=== PATIENT | male | born 1950 | race Caucasian/White ===

== ENCOUNTER 2025-02-19 00:07 | Day surgery (SDC) | payer MEDICARE, SELFPAY ==
[2025-02-10 12:43] VITALS: BMI 21.2
--- OUTSIDE RECORDS SUMMARY | 2025-02-19 00:11 | XMS_ITS | Clinical Summary ---
Author Organization [facility] Address [address] [address] [place] [address] Phone Care Team Providers Care Ladle Liner Name Role Phone Robert Rodriguez MD Unavailable [phone] Ajith Yoder MD Primary Care Provider [phone] Gregoria Goodrich APRN, SPINNER TENDER Unavailable Georges Luque MD Unavailable Lion Mishra MD Unavailable Allergies No known active allergies Medications Multiple Vitamin (MULTI-VITAMIN PO) Take by mouth daily. Active Continuous Glucose Sensor (FreeStyle Josemanuel 14 Day Sensor) MiscIndications:IGT (impaired glucose tolerance) 1 Device by Does not apply route every 14 days. 6 Each 1 4 Active lovastatin (MEVACOR) 20 MG TabletIndications:M ixed hyperlipidemia Take 1 Tablet by mouth daily. 90 Tablet 3 5 Active Active Problems Problem Noted Date Diagnosed Date Seasonal allergic rhinitis due to pollen 025 IGT (impaired glucose tolerance) 2018 Mixed hyperlipidemia 08/15/2015 Resolved Problems Problem Noted Date Diagnosed Date Resolved Date Conductive hearing loss, external ear 11/08/2016 Overview (01/20/2015): Improved with cleaning Impacted cerumen 11/08/2016 Encounters Date Type Department Care Team Description 11/25/2024 10:20 AM CDT Lab [facility] [place] [facility] [place] [id number] Mixed hyperlipidemia; IGT (impaired glucose tolerance); Abnormal PSA Discharge Disposition: Discharged to home or Selfcare 11/25/2024 8:30 AM CDT Office Visit [facility] [place] [facility] [place] [address] Ajith Yoder MD IGT (impaired glucose tolerance) (Primary Dx); Mixed hyperlipidemia; Seasonal allergic rhinitis due to pollen; Abnormal PSA Discharge Disposition: Discharged to home or Selfcare 11/25/2024 Results Follow-Up [facility] [place] [address] [place] [address] Ajith Yoder MD VITAMIN D, 25 HYDROXY TOTAL 11/23/2024 Travel from Last 3 Months Immunizations Immunization Administration Dates Next Due COVID-19, MRNA, LNP-S, BIVAL ENT , MODERNA, 50 MCG/0.5 ML (12+) 12/17/2022,06/25/2022 COVID-19, Mrna, Lnp-s, Pf, 50 mcg/0.5 mL 023 Covid-19, Mrna, Lnp-s, PF, 1 00 mcg/0.5 mL Dose (Moderna) 07/04/2020,06/06/2020 Influenza Vaccine greater than 3 yrs 02/22/2020, 05/06/2013 Influenza Vaccine, Quadrivalent, PF 02/06/2019,0 07/02/2018 Influenza, High-dose, Quadrivalent 02/08/2023 Influenza, Quadrivalent, Adjuvanted 02/01/2022 Influenza, high-dose, trivalent, PF 03/01/2024 Pneumococcal Vaccine - 13 Valent 11/08/2017 Pneumococcal Vaccine Adult - 23 Valent 9 TD VACCINE 06/08/2019 TDAP Vaccine 11/12/2007 Zoster Vaccine Recombinant 03/23/2020,12/04/2019 Zoster Vaccine, live 02/06/2012 Family History Medical History Relation Name Comments No Known Problems Brother Cancer Father CML Congestive Heart Failure Father Heart Disease Father Diabetes Maternal Grandfather Macular Degeneration Mother Relation Name Status Comments Brother Alive Father Maternal Grandfather Mother Alive Social History Tobacco Use Types Packs/Day Years Used Date Smoking Tobacco: Former Cigarettes 0.1 1 Smokeless Tobacco: Never Tobacco Cessation:Counseling Given: Not Answered Alcohol Use Standard Drinks/Week Comments Not Currently 0 (1 standard drink = 0.6 oz pur e alcohol) [facility] Utilities Answer Date Recorded In the past 12 months has e [employer], gas, oil, or water [employer] threatened to shut off services in your home? No 08/13/2024 Social Connection and Isolation Panel Answer Date Recorded In a typical week, how many times do you talk on the phone with family, friends, or neighbors? Three times a week 08/13/2024 How often do you get togethe r with friends or relatives? Three times a week 08/13/2024 How often do you attend chur ch or mandaen services? More than 4 times per year 08/13/2024 Do you belong to any clubs o r organizations such as congregation groups, unions, fraternal or athletic groups, or school groups? Yes 08/13/2024 How often do you attend meet ings of the clubs or organizations you belong to? More than 4 times per year 08/13/2024 Are you , , di vorced, , never , or living with a partner? Never 08/13/2024 AUDIT-C Answer Date Recorded Q1: How often do you have a drink containing alc ohol? Monthly or less 08/13/2024 Q2: How many drinks containi ng alcohol do you have on a typical day when you are drinking? 1 or 2 08/13/2024 Q3: How often do you have si x or more drinks on one occasion? Never 08/13/2024 Overall Financial Resource Strain (CARDIA) Answe r Date Recorded How hard is it for you to pa y for the very basics like food, housing, medical care, and heating? Not hard at all 08/13/2024 PHQ-2 Answer Date Recorded Total Score - Questions 1-9 0 08/04 [facility] [place] [employer] ional Health - Occupational Stress Questionnaire Answer Date Recorded Do you feel stress - tense, restless, nervous, or anxious, or unable to sleep at night because your mind is troubled all the time - these days? Not at all 08/13/2024 Exercise Vital Sign Answer Date Recorde d On average, how many days pe r week do you engage in moderate to strenuous exercise (like a brisk walk)? 3 days 08/13/2024 On average, how many minutes do you engage in exercise at this level? 30 min 08/13/2024 Hunger Vital Sign Answer Date Recorded Within the past 12 months, y ou worried that your food would run out before you got the money to buy more. Never true 08/14/19 25 Within the past 12 months, t he food you bought just didn't last and you didn't have money to get more. Never true 08/13/2024 PRAPARE - Transportation Answer Date Re corded In the past 12 months, has l ack of transportation kept you from medical appointments or from getting medications? No 08/04 In the past 12 months, has l ack of transportation kept you from meetings, work, or from getting things needed for daily living? No 08/13/2024 Housing Stability Vital Sign Answer Maury e Recorded In the last 12 months, was t here a time when you were not able to pay the mortgage or rent on time? No 08/13/2024 Number of Times Moved in the Last Year Not on fi le 08/13/2024 At any time in the [facility] were you homeless or living in a nursing home (including now)? No 08/13/2024 Housing Stability Vital Sign Answer Maury e Recorded In the last 12 months, was t here a time when you were not able to pay the mortgage or rent on time? No 11/23/2024 In the past 12 months, how m any times have you moved where you were living? 0 11/23/2024 At any time in the past 12 m [facility], were you homeless or living in a nursing home (including now)? No 11/23/2024 Education Answer Date Recorded What is the highest level of school you have completed or the highest degree you have received? 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 Sexual Orientation Not on file Last Filed Vital Signs Vital Sign Reading Time Taken Comments Blood Pressure 128/68 11/25/2024 8:23 AM CDT Pulse 73 11/25/2024 8:23 AM CDT Temperature 35.9 C (96.6 F) 11/25/2024 8:23 AM CDT Respiratory Rate 20 11/25/2024 8:23 AM CDT Oxygen Saturation 99% 11/25/2024 8:23 AM CDT Inhaled Oxygen Concentration - - Weight 69.9 kg (154 lb 1.6 oz) 11/25/2024 8:23 A M CDT Height 182.9 cm (6') 11/25/2024 8:23 AM CDT Body Mass Index 20.9 11/25/2024 8:23 AM CDT Plan of Treatment Upcoming Encounters Date Type Department Care Team (Late st Contact Info) Description 11/25/2025 9:00 AM CDT Office Visit [facility] [place] [address] [place] [phone] Ajith Yoder MD [address] [place], [place] [phone] Health Maintenance Due Date Last Done Comments Immunochemical Fecal Occult Blood 11/09/1996 Medicare Initial AWV [id number] 11/03/2017 Cologuard 12/06/2022 12/07/2019 Colorectal Cancer Screening 12/06/2022 Influenza Immunization (#1) 01/04/202502/04, 02/08/2023, 02/01/2022, Additional history exists SARS-COV-2 Immunization ( season) 2025 02/09/2024, 03/24/2023, 12/17/2022, Additional history exists Respiratory Syncytial Virus (RSV) Immunization (Adult) (1 - 1-dose 75+ series) 11/09/2026 Td Immunization Every 10 Years (Adults With 1 Tdap) 06/08/2029 06/08/2019, 11/12/2007 Colonoscopy 08/31/2032 08/31/2022 AAA Screening Ultrasound Completed 01/15/2018 Pneumococcal Immunization (50+ years) Completed 2018, 11/08/2017 Pneumococcal Immunization Combined Discontinued 2018, 11/08/2017 Zoster Immunization Completed 03/23/2020, 12/04/2019, 02/06/2012 Hepatitis C Virus (HCV) Screening Completed 11/26/2023 PSA Discussion Discontinued 11/25/2024, 05/21/2022 Hepatitis B Immunization Aged Out No longer eligible based on patient's age to complete this topic Human Papillomavirus (HPV) Immunization Aged Out No longer eligible based on patient's age to complete this topic Meningococcal Immunization (ACWY) Aged Out No longer eligible based on patient's age to complete this topic Rotavirus Immunization Aged Out No lo nger eligible based on patient's age to complete this topic Procedures Procedure Name Priority Date/Time Associated Diagnosis Comments CBC WITH AUTO DIFFERENTIAL Today 11/25/2024 8:55 AM CDT Mixed hyperlipidemia IGT (impaired glucose tolerance) PSA DIAGNOSTIC,TOTAL Today 11/25/2024 8:55 AM CDT Abnormal PSA C-REACTIVE PROTEIN (CRP) QUANT Routine 11/25/2024 8:55 AM CDT IGT (impaired glucose tolerance) VITAMIN B12 Today 11/25/2024 8:55 AM CDT IGT (impaired glucose tolerance) HEMOGLOBIN A1C W/ ESTIMATED GLUCOSE Routine 11/25/2024 8:55 AM CDT IGT (impaired glucose tolerance) LIPID PANEL Routine 11/25/2024 8:55 AM CDT Mixed hyperlipidemia COMPLETE BLOOD COUNT (CBC) WITH DIFF Today 11/25/2024 8:55 AM CDT Mixed hyperlipidemia IGT (impaired glucose tolerance) CMP (COMPREHENSIVE METABOLIC PANEL) Today 11/25/2024 8:55 AM CDT Mixed hyperlipidemia IGT (impaired glucose tolerance) VITAMIN D, 25 HYDROXY TOTAL Routine 11/25/2024 8:55 AM CDT IGT (impaired glucose tolerance) HEPATITIS C ANTIBODY Routine 11/26/2023 8:54 AM CDT Encounter for hepatitis C screening test for low risk patient COLOGUARD Routine 12/07/2019 12:35 PM CDT Screening for colon cancer US AAA SCREENING Routine 01/15/2018 9:04 AM CDT Screening for cardiovascular condition from Last 3 Months or Most Recently Relevant to Health Maintenance Results * VITAMIN D, 25 HYDROXY TOTAL (11/25/2024 8:55 AM CDT) VITAMIN D, 25 HYDROX 42.0 ng/mL 11/25/2024 1:58 PM CDT [facility] Blood Venipuncture / Unknown 11/25/2024 8:55 AM CDT 11/25/2024 8:55 AM CDT Narrative [facility] - 11/25/2024 1:58 PM CDT Published reference ranges for Vitamin D vary depending on time and place and method of testing, and on patient's age, sex, ethnicity and levels of other measured analytes such as parathormone, calcium and phosphorus. The result should be evaluated in conjunction with clinical findings and suspicions. [place] [employer] and Endocrine Clinical Practice Guidelines: Status Vitamin D levels (ng/mL) Deficient <=20 At risk of inadequacy 21-29 Sufficient 30-100 Centers of Disease Control and Prevention Guidelines: Status Vitamin D levels (ng/mL) Deficient <13 At risk of inadequacy 13-19 Sufficient 20-50 Possibly harmful >50 References: [place] [employer], 2010 Dietary reference intakes for calcium and vitamin D. [place]: The National Academies Press. Remigio M, Lul N, Conor ANNE, et al., Evaluation, treatment, and prevention of Vitamin D deficiency: an Endocrinology Clinical Practice Guideline. JCEM 2011 96: 7 9342-4785. Nathaly A, Dewayne C, Ana D, et al., Vitamin D Status: [place], , [facility] data brief, no. [address], [place], [place]: Formerly [facility] for Health Statistics. 2011. Ajith Yoder MD CHEMISTRY ORDERABLES Lurdes l Result Performing Organization Address City/[facility]/ZIP Co de Phone Number [facility] [address] [place] [address] * HEMOGLOBIN A1C W/ ESTIMATED GLUCOSE (11/25/2024 8:55 AM CDT) HGB-A1C 5.8 4.0 - 6.0 % 11/25/2024 1:43 PM CDT [facility] Est Average Glucose 119.8 mg/dL 11/25/2024 1:43 PM CDT [facility] Blood Venipuncture / Unknown 11/25/2024 8:55 AM CDT 11/25/2024 8:55 AM CDT Narrative [facility] - 11/25/2024 1:43 PM CDT HEMOGLOBIN A1C: DIABETIC PATIENTS: WELL-CONTROLLED: 6.2 - 7.0 INTERMEDIATE WELL-CONTROLLED: 7.0 - 9.0 POORLY-CONTROLLED: >9.0 Specimens containing greater than 5% of Hemoglobin F may result in lower than expected % HbA1C results. Ajith Yoder MD CHEMISTRY ORDERABLES Lurdes l Result Performing Organization Address [facility] Co de Phone Number [facility] [address] [place] [address] * (ABNORMAL) CBC WITH AUTO DIFFERENTIAL (11/25/2024 8:55 AM CDT) WBC 7.65 4.00 - 12.00 10(3)/mcL 11/25/2024 1:19 PM CDT [facility] RBC 4.62 4.40 - 5.80 10(6)/mcL 11/25/2024 1:19 PM CDT [facility] HEMOGLOBIN (HGB) 14.6 13.0 - 16.5 g/dL 11/25/2024 1:19 PM CDT [facility] HEMATOCRIT (HCT) 44.7 38.0 - 50.0 % 11/25/2024 1:19 PM CDT [facility] MCV 96.8(H) 82.0 - 96.0 fL 11/25/2024 1:19 PM [facility] MCH 31.6 26.0 - 32.0 pg 11/25/2024 1:19 PM CDT [facility] MCHC 32.7 31.0 - 36.0 g/dL 11/25/2024 1:19 PM CDT [facility] PLATELET COUNT 242 140 - 440 10(3)/mcL 11/25/2024 1:19 PM [facility] RDW 14.8 11.8 - 15.5 % 11/25/2024 1:19 PM [facility] MPV 11.1 8.0 - 12.6 fL 11/25/2024 1:19 PM [facility] NEUTROPHILS 68.3(H) 40.0 - 68.0 % 11/25/2024 1:19 PM CDT [facility] LYMPHOCYTES 21.2 19.0 - 49.0 % 11/25/2024 1:19 PM [facility] MONOCYTES 6.9 3.0 - 13.0 % 11/25/2024 1:19 PM [facility] EOSINOPHILS 2.5 0.0 - 8.0 % 11/25/2024 1:19 PM CDT [facility] BASOPHILS 0.7 0.0 - 1.0 % 11/25/2024 1:19 PM CDT [facility] IMMATURE GRANULOCYTE 0.4 0.0 - 0.4 % 11/25/2024 1:19 PM [facility] Comment:Immature Granulocyte s includes Metamyelocytes, Myelocytes, and Promyelocytes. ABSOLUTE NEUTROPHILS 5.23 1.40 - 5.30 10(3)/mcL 11/25/2024 1:19 PM CDT [facility] ABSOLUTE LYMPHOCYTES 1.62 0.90 - 3.30 10(3)/mcL 11/25/2024 1:19 PM CDT [facility] ABSOLUTE MONOCYTES 0.53 0.10 - 0.90 10(3)/[facility] 11/25/2024 1:19 PM CDT [facility] ABSOLUTE EOSINOPHIL 0.19 0.00 - 0.50 10(3)/[facility] 11/25/2024 1:19 PM CDT [facility] ABSOLUTE BASOPHILS 0.05 0.00 - 0.10 10(3)/[facility] 11/25/2024 1:19 PM CDT [facility] ABSOLUTE IMMATURE GRANULOCYTE 0.03 0.00 - 0.03 10 (3) [facility]. 11/25/2024 1:19 PM CDT [facility] NRBC PER 100 WBC 0 11/26/19 1:19 PM CDT [facility] Blood Venipuncture / Unknown 11/25/2024 8:55 AM CDT 11/25/2024 8:55 AM CDT us Ajith Yoder MD HEMATOLOGY ORDERABLES Fin al Result [facility] [address] [place] [address] * (ABNORMAL) VITAMIN B12 (11/25/2024 8:55 AM CDT) VITAMIN B12 1,140(H) 213 - 816 pg/mL 11/25/2024 1:58 PM CDT [facility] Blood Venipuncture / Unknown 11/25/2024 8:55 AM CDT 11/25/2024 8:55 AM CDT Ajith Yoder MD CHEMISTRY ORDERABLES Lurdes l Result [facility] [address] [place] [address] * (ABNORMAL) PSA DIAGNOSTIC,TOTAL (11/25/2024 8:55 AM CDT) PSA, TOTAL (PROSTATIC SPECIFIC ANTIGEN) 5.08(H) <4.00 ng/mL 11/25/2024 1:58 PM CDT [facility] Blood Venipuncture / Unknown 11/25/2024 8:55 AM CDT 11/25/2024 8:55 AM CDT Narrative [facility] - 11/25/2024 1:58 PM CDT PSA NOTE: The PSA value should be used in conjunction with information available from clinical evaluation and other diagnostic procedures. The [employer] Total PSA assay is a Chemiluminescent Microparticle Immunoassay (CMIA) for the quantitative determination of total PSA (both free PSA and PSA complexed to [id number]) in human serum. Total PSA values obtained with different assay methods, including Medina PSA assays, cannot be used interchangeably. us Ajiht Yoder MD CHEMISTRY ORDERABLES Lurdes harding Result [facility] [address] [place] [address] * LIPID PANEL (11/25/2024 8:55 AM CDT) CHOLESTEROL 161 <200 mg/dL 11/25/2024 1:37 PM CDT [facility] TRIGLYCERIDES 53 <150 mg/dL 11/25/2024 1:37 PM CDT [facility] HDL CHOLESTEROL 78 >40 mg/dL 1:37 PM CDT [facility] LDL 72 <130 mg/dL 11/25/2024 1:37 PM CDT [facility] VLDL 11 10 - 50 mg/dL 11/25/2024 1:37 PM CDT [facility] CHOL/HDL RATIO 2.1 0.0 - 4.4 11/25/2024 1:37 PM CDT [facility] NON-HDL CHOLESTEROL 83 <130 mg/dL 11/25/2024 1:37 PM CDT [facility] IS THE PATIENT REQUIRED TO BE FASTING? Yes 11/25/2024 1:37 PM CDT [facility] HAS THE PATIENT BEEN FASTING? Yes 11/25/2024 1:37 PM CDT [facility] Blood Venipuncture / Unknown 11/25/2024 8:55 AM CDT 11/25/2024 8:55 AM CDT us Ajith Yoder MD CHEMISTRY ORDERABLES Lurdes l Result [facility] [address] [place] [address] * (ABNORMAL) CMP (COMPREHENSIVE METABOLIC PANEL) (11/25/2024 8:55 AM CDT) SODIUM 139 136 - 145 mmol/L 11/25/2024 1:37 PM CDT [facility] POTASSIUM 4.4 3.5 - 5.1 mmol/L 11/25/2024 1:37 PM CDT [facility] CHLORIDE 104 98 - 107 mmol/L 11/25/2024 1:37 PM CDT [facility] CO2, VENOUS 27 22 - 30 mmol/L 11/25/2024 1:37 PM CDT [facility] ANION GAP 12.4 <18.0 mmol/L 11/25/2024 1:37 PM CDT [facility] GLUCOSE 101(H) 70 - 99 mg/dL 11/25/2024 1:37 PM CDT [facility] BUN 15 8 - 26 mg/dL 11/25/2024 1:37 PM CDT [facility] CREATININE, BLOOD 0.86 0.70 - 1.30 mg/dL 11/25/2024 1:37 PM CDT [facility] BUN/CREATININE RATIO 17 12 - 20 ratio 11/25/2024 1:37 PM CDT [facility] TOTAL PROTEIN 7.2 6.0 - 8.0 g/dL 11/25/2024 1:37 PM CDT [facility] ALBUMIN 4.5 3.5 - 5.0 g/dL 11/25/2024 1:37 PM CDT [facility] A/G RATIO 1.7 1.0 - 2.2 11/25/2024 1:37 PM CDT [facility] CALCIUM 9.4 8.7 - 10.5 mg/dL 11/25/2024 1:37 PM CDT [facility] T BILI 0.7 0.2 - 1.2 mg/dL 11/25/2024 1:37 PM CDT [facility] SGOT (AST) 22 <43 U/L 11/25/2024 1:37 PM CDT [facility] SGPT (ALT) 17 <56 U/L 11/25/2024 1:37 PM CDT [facility] ALKALINE PHOSPHATASE 46 40 - 150 U/L 11/25/2024 1:37 PM CDT [facility] IS THE PATIENT REQUIRED TO BE FASTING? No 11/25/2024 1:37 PM CDT [facility] GFR, ESTIMATED >60 >=60 11/25/2024 1:37 PM CDT [facility] Comment: Creatinine Clearance is the preferred criteria for selecting drug dose adjustments in renally impaired patients. The GFR is provided as additional pertinent clinical information. GFR is reported in mL/min/1.73 sq m. Calculation based on the Chronic Kidney Disease Epidemiology Collaboration (CKD- EPI) equation refit without adjustment for race. GFR, EST. >60 >=60 025 1:37 PM CDT [facility] GFR, EST. NONAFRICAN >60 >=60 11/25/2024 1:37 PM CDT [facility] Blood Venipuncture / Unknown 11/25/2024 8:55 AM CDT 11/25/2024 8:55 AM CDT us Ajith Yoder MD CHEMISTRY ORDERABLES Lurdes l Result Performing Organization Address City/[facility]/ZIP Co de Phone Number [facility] [address] [place] [address] * C-REACTIVE PROTEIN (CRP) QUANT (11/25/2024 8:55 AM CDT) C-REACTIVE PROTEIN 0.15 <0.50 mg/dL 11/25/2024 1:37 PM CDT [facility] Blood Venipuncture / Unknown 11/25/2024 8:55 AM CDT 11/25/2024 8:55 AM CDT Ajith Yoder MD CHEMISTRY ORDERABLES Lurdes l Result Performing Organization Address [facility] Co de Phone Number [facility] [address] [place] [address] * HEPATITIS C ANTIBODY (11/26/2023 8:54 AM CDT) hepatitis C antibody 0.12 <1 S/CO 11/26/2023 11:00 PM CDT [facility] Comment: Signal/Cutoff ratio < 0.79 is Nondetected Signal/Cutoff ratio 0.80-0.99 is Grayzone Signal/Cutoff ratio > 0.99 is Detected Supplemental assays are recommended if signal/cutoff ratio is >/=1.00. Signal/cutoff ratio result >/= 5.00 is 97% predictive of positivity for recombinant immunoblot assay (RIBA) and will be reported to the [place] Department of Public Health as required. Blood Venipuncture / Unknown 11/26/2023 8:54 AM CDT 11/26/2023 8:54 AM CDT Ajith Yoder MD CHEMISTRY ORDERABLES Lurdes l Result Performing Organization Address City/[facility]/ZIP Co de Phone Number [facility] [address] [place] [address], [place] * COLOGUARD (12/07/2019 12:35 PM CDT) Cologuard Negative Not Applicable [facility] Comment: A negative result indicates a low likelihood that a colorectal cancer (CRC) or an advanced adenoma (adenomatous polyps with more advanced pre-malignant features) is present. The chance that a person with a negative Cologuard test has a colorectal cancer is less than 1 in 1500 (negative predictive value >99.9%) or has an advanced adenoma is less than 5.3% (negative predictive value 94.7%). These data are based on a prospective cross-sectional screening study of 10,000 individuals at average risk for colorectal cancer who were screened with both Cologuard and colonoscopy. (Ashkan Saenz et al, N Engl J Med 2014;370(14):4924-0128) The normal value (reference range) for this assay is negative. COLOGUARD RE-SCREENING RECOMMENDATION: Periodic routine colorectal cancer screening is an important part of preventive healthcare for asymptomatic persons at average risk for colorectal cancer. Following a negative Cologuard result, the [place] [employer] and U.S. Multi-Society Task Force screening guidelines recommend a Cologuard re-screening interval of 3 years. References: [place] [employer] (ACS). Colorectal cancer prevention and early detection. [place], [place]: [place] [employer]; [updated 2015Aug 27]. https://www.cancer.org/cancer/ztnxv-zwgnsb-dfqfvb/vjnzzerjj-gbfrgstsm-hgjodqr/ acs-recommendations.html. Accessed January 03, 2018; Ramos DK, Yoni OLMSTEAD, Donna AzevedoK, Colorectal Cancer Screening: Recommendations for Physicians and Patients from the U.S. Multi-Society Task Force on Colorectal Cancer Screening, Am J Gastroenterology 2017; 112:6134-9652. TEST TYPE: Composite algorithmic analysis of stool DNA-biomarkers with hemoglobin immunoassay. Quantitative values of individual biomarkers are not reportable and are not associated with individual biomarker result reference ranges. PRECAUTIONS AND LIMITATIONS: Cologuard is intended for colorectal cancer screening of adults of either sex, 45 years or older, who are at average-risk for colorectal cancer (CRC). Cologuard has been approved for use by the U.S. FDA. Cologuard may produce a false negative or false positive result. A negative Cologuard test result does not guarantee the absence of CRC or advanced adenoma (pre-cancer). Patients with a negative Cologuard test result should be advised to continue participating in a colorectal cancer screening program. The screening interval for Cologuard is currently recommended at an interval of every 3 years by the [employer] and [place].S. Multi-Society Task Force. A false positive result occurs when Cologuard produces a positive result, even though a colonoscopy may not find colorectal cancer or precancerous polyps. The performance of Cologuard has been established in a cross sectional study (i.e., single point in time) of average-risk adults aged 50-84. Cologuard performance in patients ages 45 to 49 years was estimated by sub-group analysis of near-age groups. Cologuard performance data in a 10,000 patient pivotal study using colonoscopy as the reference method can be accessed at the following location: [email or web address].[email or web address]/results. Additional description of the Cologuard test process, warnings and precautions can be found at www.cologuardtest.com. Rx only. Stool specimen (specimen) 12/07/2019 12:35 PM CDT 12/08/2019 3:42 PM CDT us Ajith Yoder MD BODY FLUIDS & STOOLS STEPHY SEGOVIA Final Result Performing Organization Address City/State/[facility] Co de Phone Number [employer] [address] [place] [address], [employer] [address] [place] [address] * US AAA Screening (01/15/2018 9:04 AM CDT) Anatomical Region Laterality Modality Abdomen N/A Ultrasound 01/15/2018 12:3 0 PM CDT Impressions 01/15/2018 12:33 PM CDT IMPRESSION: No abdominal aortic aneurysm. Narrative 01/15/2018 12:33 PM CDT EXAM DESCRIPTION: US AAA SCREENING REASON FOR STUDY: Encounter for screening for AAA. Former smoker. TECHNIQUE: Static and dynamic images acquired of the aorta and stored on PACS. Selected color Doppler and spectral images recorded. COMPARISON: None FINDINGS: AORTIC CALIBER MAXIMAL PROXIMAL: 2.3 x 2.3 cm MID: 1.9 x 1.5 cm DISTAL: 1.6 x 1.5 cm ILIAC DIAMETER RIGHT: 1.5 cm LEFT: 1.3 cm OTHER: Mild atherosclerotic plaque of abdominal aorta. THIS IS AN ELECTRONICALLY VERIFIED FINAL REPORT 01/15/2018 12:30 PM - Electronically signed by Chapito Barragan M.D. [place]: [place] Report ID: [id number] Reading Location: [id number] Procedure Note Chapito Barragan MD - 01/15/2018 EXAM DESCRIPTION: US AAA SCREENING REASON FOR STUDY: Encounter for screening for AAA. Former smoker. TECHNIQUE: Static and dynamic images acquired of the aorta and stored on PACS. Selected color Doppler and spectral images recorded. COMPARISON: None FINDINGS: AORTIC CALIBER MAXIMAL PROXIMAL: 2.3 x 2.3 cm MID: 1.9 x 1.5 cm DISTAL: 1.6 x 1.5 cm ILIAC DIAMETER RIGHT: 1.5 cm LEFT: 1.3 cm OTHER: Mild atherosclerotic plaque of abdominal aorta. THIS IS AN ELECTRONICALLY VERIFIED FINAL REPORT 01/15/2018 12:30 PM - Electronically signed by Chapito Barragan M.D. [place]: NE Report ID: [id number] Reading Location: [id number] IMPRESSION: No abdominal aortic aneurysm. us Ajith Yoder MD [facility] ORDERABLES Final R esult from Last 3 Months or Most Recently Relevant to Health Maintenance Insurance MEDICARE [facility] Care Teams Ladle Liner Relationship Specialty Start Date End Date Ajith Yoder MD [address] [place] [address] PCP - General Internal Medicine 05/21/22 Robert Rodriguez MD [address] [place] [address] [address] [place] [address] Consulting Physician Dermatology 02/06/19 Gregoria Goodrich APRN, SPINNER TENDER [address] [place] [address] Nurse Practitioner Gastroenterology 08/16/22 Georges Luque MD [address] [address] Consulting Physician Colon and Rectal Surgery 12/19/23 Lion Mishra MD [address] [address] Consulting Physician Urology 11/25/24
--- OUTSIDE RECORDS SUMMARY | 2025-02-19 00:11 | XMS_ITS | Clinical Summary ---
Author Organization [facility] Address [facility] [place] [address] Care Team Providers Care Grain Elevator Motor Starter Name Role Phone New Referring, Provider Primary Care Provider Un available Immunizations Immunization Administration Dates Next Due MODERNA COVID-19 BIVALENT (1 2+), MRNA, LNP-S, PF 12/17/2022,06/25/2022 MODERNA COVID-19 (12+) MRNA, LNP-S, PF, 100 MCG/ 0.5 ML DOSE 09/18/2021,03/01/2021,07/04/2020,2020 MODERNA COVID-19 (12+), MRNA , LNP-S, PF, 50 MCG/0.5 ML (SPIKEVAX) 03/24/2023 Social History Tobacco Use Types Packs/Day Years Used Date Smoking Tobacco: Never Assessed Sex and Gender Information Value Date Recorded Sex Assigned at Male 05/21/2024 1:50 PM CORPORATE PLANNER Legal Sex Male 10:15 AM CORPORATE PLANNER Gender Identity Not on file Sexual Orientation Not on file Plan of Treatment Health Maintenance Due Date Last Done Comments Colorectal Cancer Screening Colonoscopy (10 Years) 1950 Annual Medicare Wellness Visit 11/09/2016 COVID-19 Vaccine ( season) 2025 03/24/2023, 12/17/2022, 06/25/2022, Additional history exists Influenza Adult (#1) 2025 02/22/2020, 02/06/2019, 07/02/2018, Additional history exists RSV Immunization or 60+ Years (1 - 1-dose 75+ series) 11/09/2026 DTaP, Tdap and Td Vaccines (3 - Td or Tdap) 06/08/2029 06/08/2019, 11/12/2007 Pneumococcal Vaccine: 50+ Years Completed 2018, 11/08/2017 Zoster Vaccines Completed 03/23/2020, 11/05, 02/06/2012 Hepatitis C Completed 11/26/2023 Hepatitis A Vaccines Aged Out No long er eligible based on patient's age to complete this topic Meningococcal B Vaccine Aged Out No l onger eligible based on patient's age to complete this topic Meningococcal Vaccine Aged Out No ozzy kyle eligible based on patient's age to complete this topic RSV Immunizations Under 20 Months Aged Out No longer eligible based on patient's age to complete this topic Insurance MEDICARE Care Teams Grain Elevator Motor Starter Relationship Specialty Start Date End Date New Referring, Provider PCP - General UNKNOWN PHYSICIAN SPECIALTY 04/24/19
--- OUTSIDE RECORDS SUMMARY | 2025-02-19 00:11 | XMS_ITS | Encounter Summary ---
Author Organization [facility] Address [address] [place] [address] Phone Care Team Providers Care Final Inspector Paper Name Role Phone Ajith Yoder MD Primary Care Provider Robert Rodriguez MD Unavailable [phone] Janene Rodriguez APRN, LOOM REPAIRER Primary Care Provider Ajith Yoder MD Primary Care Provider [phone] Gregoria Goodrich APRN, LOOM REPAIRER Unavailable Georges Luque MD Unavailable Lion Mishra MD Unavailable Reason for Visit * Reason Comments Medication Refill Encounter Details Date Type Department Care Team (Late st Contact Info) Description 09/09/2020 Refill [facility] - Primary Care - [place] [address] [place] [address] Ajith Yoder MD [address] [place] [address] Medication Refill Social History Tobacco Use Types Packs/Day Years Used Date Smoking Tobacco: Former Cigarettes 0.1 1 Smokeless Tobacco: Never Alcohol Use Standard Drinks/Week Comments Yes 0 (1 standard drink = 0.6 oz pur e alcohol) PHQ-2 Answer Date Recorded Total Score - Questions 1-9 0 07/0 01/2020 Sex and Gender Information Value Date Recorded Sex Assigned at Not on file Legal Sex Male 8:53 PM CDT Gender Identity Male 03/27/2023 10:20 PM OUTER 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 documented in this encounter Plan of Treatment Upcoming Encounters Date Type Department Care Team (Late st Contact Info) Description 11/25/2025 9:00 AM CDT Office Visit [facility] - Primary Care - [place] [address] [place] [address] Ajith Yoder MD [address] [place] [address] documented as of this encounter Visit Diagnoses Diagnosis Left breast mass Lump or mass in breast documented in this encounter Additional Health Concerns Infection Onset Date Last Indicated Resolved Time C. difficile Rule-Out 08/10/2022 08/10/20222022 6:07 PM CDT Respiratory Rule Out - RPA 02/26/2023 02/26/2023 1 10:55 AM CDT Assessment Noted Time PHQ-9 Depression Total Score: 0 11/12/19 20 8:00 AM CDT documented as of this encounter Care Teams Final Inspector Paper Relationship Specialty Start Date End Date Ajith Yoder MD [address] [place] [address] PCP - General Internal Medicine 08/16/15 11/14/21 Janene Rodriguez, FOOD PRESERVATION SCIENTIST, LOOM REPAIRER [address] [place] [address] PCP - General Advanced Practice Nurse 11/15/21 Ajith Yoder MD [address] [place] [address] PCP - General Internal Medicine 05/21/22 Robert Rodriguez MD [address] [facility] [address] [place], [place] [id number] Consulting Physician Dermatology 02/06/19 Gregoria Goodrich APRN, LOOM REPAIRER [address] [place] [address] Nurse Practitioner Gastroenterology 08/16/22 Georges Luque MD [address] [address] Consulting Physician Colon and Rectal Surgery 12/19/23 Lion Mishra MD [address] [address] Consulting Physician Urology 11/25/24 documented as of this encounter
[2025-02-19 08:53] VITALS: BP 138/75; PULSE 63; RESP 18; TEMP 36.4; O2SAT 100
[2025-02-19] MEDS: LACTATED RINGERS 1,000 ML 150 ML IV CONT (09:06)
--- NOTE | 2025-02-19 09:41 | WPDANESEPPF ---
Anes - Initial Pre Proc Eval Procedure: Operation Date: 02/19/25 10:00 Proposed Procedures p Screening Colonoscopy - Kieran Vee MD Date/Time: 02/19/25 09:41 Surgeon: Kieran Vee MD Pre Op Diagnosis: Screening Patient Data Age: 74 Gender: M Height: 1.8 m Weight: 70.5 kg Last Vital Signs Temp 36.4 C L 02/19/25 08:53 Pulse 63 02/19/25 08:53 Resp 18 02/19/25 08:53 BP 138/75 02/19/25 08:53 Pulse Ox 100 02/19/25 08:53 O2 Del Method Room Air 02/19/25 08:53 Allergies Allergy/AdvReac Type Severity Reaction Status Date / Time No Known Allergies Allergy Verified 02/23/25 10:15 Home Medications ?Medication ?Instructions ?Recorded ?Confirmed ?Type fluticasone propionate 50 intranasal 02/23/25 02/23/25 History mcg/actuation nasal spray,suspension metformin 500 mg tablet,extended 500 mg PO DAILY #90 tabs 02/23/25 02/23/25 Rx release 24 hr (Glucophage XR) rosuvastatin 10 mg tablet (Crestor) 10 mg PO DAILY #90 tabs 02/23/25 02/23/25 Rx Patient hx anesthesia problems: none Family hx anesthesia problems: none Results Review: All pre-operative results and documents have been reviewed as part of the pre-operative evaluation. [facility] Past Medical History Medical History (Updated 02/23/25 @ 10:55 by Farhan Campbell MD) Hyperlipidemia Surgical History Surgical History History of breast biopsy Ultrasound-guided left breast biopsy -04/01/2019 History of left inguinal hernia repair Laparoscopic left inguinal hernia repair with ProGrip mesh, DaVinci assisted - 12/05/2016 Family History Family History Other Heart disease Social History Social History (Updated 02/23/25 @ 10:20 by Denise Mitchell MA) Social History: Caffeine-coffee Smoking status: Never smoker Second hand tobacco smoke exposure: No Smoking end date: 05/06/89 Alcohol intake: current Drinks per week: 2 Alcohol use details: Rarely Substance use: never Substance use type: does not use Do You Feel Safe in your Home?: Yes Lack of Transportation: No Lack of Food: Never True Current Housing: I Have Housing Concerned About Future Housing: No Difficulty Paying Gas/Electric Bills: No Difficulty Paying for Meds: No Currently Unemployed: No Education: Master's Degree or Higher Difficulty w/ Childcare or Family Care: No Living arrangements: alone Occupation/Education: 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 Gender identity (if verbalized by the patient): Male Sexual Orientation (if Verbalized by the Patient): Straight or Heterosexual Spiritual care concerns: No Agree to blood products: Yes Anes - Eval Final PreProcedure Day of Procedure 02/19/25 09:41 Patient weight: normal Heart: regular rate and rhythm Lungs: clear to auscultation and normal air movement Airway: Mallampati scale class II Neurological: alert and oriented Last oral intake: >/= 8 hours ASA classification: II Emergent: no Anesthetic plan: proceed Anesthesia type and monitoring: general GIVS and standard monitoring Results Review: All pre-operative results and documents have been reviewed as part of the pre-operative evaluation. Informed Consent: The patient's anesthetic plan and its attendant risks and benefits were discussed with the patient/family/POA. Questions were solicited and answers provided to the satisfaction of the patient/family/POA.
--- NOTE | 2025-02-19 09:57 | PM.IMHP ---
H&P: HPI History of Present Illness Date/Time: 02/19/25 09:57 Chief Complaint: Screening colonoscopy Narrative: This is the patient's first colonoscopy. There are no GI symptoms and there is no family history of colorectal cancer. Review of Systems Review of Systems: All systems reviewed & are unremarkable except as noted in HPI and below [facility] Past Medical History Medical History (Updated 02/19/25 @ 09:58 by Kieran Vee MD) Hyperlipidemia Surgical History Surgical History History of breast biopsy Ultrasound-guided left breast biopsy -04/01/2019 History of left inguinal hernia repair Laparoscopic left inguinal hernia repair with ProGrip mesh, DaVinci assisted - 12/05/2016 Family History Family History Other Heart disease Social History Social History Social History: Caffeine-coffee Smoking status: Former smoker Second hand tobacco smoke exposure: No Smoking end date: 05/06/89 Alcohol intake: current Alcohol use details: Rarely Substance use: never Substance use type: does not use Lack of Transportation: No Lack of Food: Never True Current Housing: I Have Housing Concerned About Future Housing: No Difficulty Paying Gas/Electric Bills: No Difficulty Paying for Meds: No Currently Unemployed: No Education: Master's Degree or Higher Difficulty w/ Childcare or Family Care: No Meds Home Medications and Allergies Home Medications ?Medication ?Instructions ?Recorded ?Confirmed ?Type lovastatin 20 mg tablet 20 mg PO DAILY 03/20/19 02/10/25 History Allergies Allergy/AdvReac Type Severity Reaction Status Date / Time No Known Allergies Allergy Verified 02/19/25 08:53 Vital Signs Vital Signs - 24 hr 02/19/25 08:53 Temperature 97.5 F L Pulse Rate 63 Respiratory Rate 18 Blood Pressure 138/75 Pulse Oximetry 100 Oxygen Delivery Room Air Exam Const: General: cooperative and healthy appearing Resp: Effort & Inspection: normal respiratory effort and able to speak in complete sentences Auscultation: clear to auscultation bilaterally Cardio: Rate: regular rate Rhythm: regular rhythm GI: Inspection: normal to inspection GI Palp: No No hepatosplenomegaly present Auscultation: normal bowel sounds Rectal Exam: deferred Skin: General skin exam: normal color Psych: Appearance: grossly normal Mental Status: mental status grossly normal Assessment and Plan Assessment and plan (1) Encounter for screening colonoscopy: Code(s): Z12.11 - Encounter for screening for malignant neoplasm of colon Status: Acute Assessment and Plan: The patient is deemed a good candidate for the procedure. Consent signed. Will proceed.
[2025-02-19 10:26] VITALS: BP 101/66; PULSE 67; RESP 18; O2SAT 95
[2025-02-19 10:36] VITALS: BP 112/74; PULSE 74; RESP 18; O2SAT 100
[2025-02-19 10:46] VITALS: BP 124/79; PULSE 63; RESP 17; O2SAT 100
== END 2025-02-19 10:49 | disposition home or self-care (01) ==
PROVIDERS: PCP Family Medicine; Referring Provider Internal Medicine; Visit Provider Internal Medicine Gastroenterology
PROC: 0DJD8ZZ Inspection of Lower Intestinal Tract, Via Natural or Artificial Opening Endoscopic (ICD-10-PCS; CPT 45378; principal; 2025-02-19 10:00)
DX: Z12.11 Encounter for screening for malignant neoplasm of colon (principal)
CPT/HCPCS: G0121; J2003; J2704; J7120

== ENCOUNTER 2025-03-18 09:17 | Outpatient (CLI) | payer MEDICARE, SELFPAY ==
--- NOTE | 2025-03-18 09:19 | ECHO_ITS ---
Patient Info Name: Fernie Rolon Age: 74 years : 1950 Gender: Male Ht: 71 in Wt: 150 lbs BSA: 1.84 m2 HR: 62 bpm BP: 134 / 83 mmHg Technical Quality: Good Exam Date: 03/18/2025 9:39 AM Patient Status: O Admit Date: 03/18/2025 Exam Type: CA echo doppler color flow Complete two-dimensional, color flow and Doppler transthoracic echocardiogram is performed. Animal Rehabilitator: Caty Edouard Attending Provider: Farhan Campbell MD Summary 1. Complete two-dimensional, color flow and Doppler transthoracic echocardiogram is performed. 2. Left ventricular chamber dimension is mildly enlarged. 3. Left ventricular systolic function is normal, estimated at 60-65. 4. The left ventricular diastolic function is grade I diastolic dysfunction. 5. E/e' 5 is not elevated. 6. Left atrial chamber dimension is mildly enlarged. 7. There is mild aortic valve sclerosis. 8. There is mild aortic valve regurgitation. Left Ventricle E/e' 5 is not elevated. Left ventricular chamber dimension is mildly enlarged. Left ventricular systolic function is normal, estimated at 60-65. The left ventricular diastolic function is grade I diastolic dysfunction. Right Ventricle Right ventricular chamber dimension is normal. Right ventricular systolic function is normal and with normal TAPSE 2.1 cm. Left Atria Left atrial chamber dimension is mildly enlarged. Right Atria Right atrial chamber dimension is normal. Aortic Valve The aortic valve is trileaflet. There is mild aortic valve sclerosis. There is no aortic valve stenosis. There is mild aortic valve regurgitation. Pulmonic Valve There is no pulmonic regurgitation. Mitral Valve There is no mitral valve stenosis. There is no mitral valve regurgitation. Tricuspid Valve There is no tricuspid valve regurgitation. Pericardium/Pleural There is no pericardial effusion. Inferior Vena Cava Normal inferior vena cava with >50% collapse upon inspiration consistent with normal right atrial pressure, 5 mmHg. Aorta The aortic root size at the sinus of Valsalva is normal. Left Ventricular Outflow Tract Name Value Normal LVOT 2D LVOT Diameter 2.0 cm LVOT Doppler LVOT Peak Velocity 117 cm/s LVOT Peak Gradient 5 mmHg LVOT Mean Gradient 2 mmHg LVOT VTI 26 cm LVOT Stroke Volume 79 ml LVOT CO 4.9 l/min LVOT CI 2.7 l/min/m2 Pulmonic Valve Name Value Normal RVOT Doppler RVOT Peak Velocity 69 cm/s RVOT Peak Gradient 2 mmHg PV Doppler PV Peak Velocity 118 cm/s PV Peak Gradient 6 mmHg Mitral Valve Name Value Normal MV Diastolic Function MV E Peak Velocity 56 cm/s MV A Peak Velocity 59 cm/s MV E/A 1.0 MV Decel Time (PW) 290 ms MV Annular TDI MV E/e' (Septal) 8.1 MV E/e' (Lateral) 4.7 MV E/e' (Average) 6.4 Tricuspid Valve Name Value Normal Estimated PAP/RSVP RA Pressure 5 mmHg <=5 Aortic Valve Name Value Normal AV Doppler AV Peak Velocity 111 cm/s AV Peak Gradient 5 mmHg AV Area (Cont Eq Hector) 3.2 cm2 AV DI (Hector) 1.05 AV Regurgitation 2D LVOT Area 3.1 cm2 Ventricles Name Value Normal LV Dimensions 2D/MM IVS Diastolic Thickness (2D) 0.6 cm 0.6-1.0 LVID Diastole (2D) 5.3 cm 4.2-5.8 LVIW Diastolic Thickness (2D) 0.9 cm 0.6-1.0 LVID Systole (2D) 3.7 cm 2.5-4.0 LVOT Diameter 2.0 cm LV Mass (2D Cubed) 137.26 g 88.00-224.00 LV Mass Index (2D Cubed) 75 g/m2 49-115 Relative Wall Thickness (2D) 0.33 <=0.42 LV Fractional Shortening/Ejection Fraction 2D/MM LV Fractional Shortening (2D) 30 % 25-43 LV EF (2D Teichholz) 56 % LV Diastolic Volume (4C MOD) 116 ml LV EF (4C MOD) 57 % LV Diastolic Volume (2C MOD) 126 ml LV EF (2C MOD) 49 % LV Diastolic Volume (BP MOD) 124 ml 62-150 LV Diastolic Volume Index (BP MOD) 67 ml/m2 34-74 LV Systolic Volume (BP MOD) 57 ml 21-61 LV Systolic Volume Index (BP MOD) 31 ml/m2 11-31 LV EF (BP MOD) 54 % 52-72 LV Diastolic Length (4C) 9.1 cm LV Systolic Length (4C) 7.8 cm LV Stroke Volume (4C MOD) 66 ml Atria Name Value Normal LA Dimensions LA Volume (4C A-L) 62 ml LA Volume (BP A-L) 73 ml RA Dimensions RA Systolic Major Canute Length (4C) 5.2 cm 2.1-2.7 RA Area (4C) 15.8 cm2 <=18.0 Report Signatures
--- OUTSIDE RECORDS SUMMARY | 2025-03-18 09:46 | XMS_ITS | Clinical Summary ---
Author Organization [facility] Address [address], [facility] [address] [place] [address] Phone Care Team Providers Care Production Operator Name Role Phone Robert Rodriguez MD Unavailable [phone] Ajith Yoder MD Primary Care Provider [phone] Gregoria Goodrich APRN, ADMISSIONS ADVISOR Unavailable Georges Luque MD Unavailable Lion Mishra [...] (01/20/2015): Improved with cleaning Impacted cerumen 11/08/2016 Immunizations Immunization Administration Dates Next Due COVID-19, [...] drink = 0.6 oz pur e alcohol) [facility] Utilities Answer Date Recorded In the past 12 months has [employer], gas, oil, or water [employer] threatened to shut off services in your home? No 08/13/2024 Social Connection and Isolation Panel Answer Date Recorded In a typical week, how many times do you talk on the phone with family, friends, or neighbors? Three times a week 08/13/2024 How often do you get togethe r with friends or relatives? Three times a week 08/13/2024 How often do you attend [facility] or voodoo services? More than 4 times per year 08/13/2024 Do you belong to any clubs o r organizations such as quaker groups, unions, fraternal or athletic groups, or [...] Total Score - Questions 1-9 0 08/04 [facility] of Occupat ional Health - Occupational Stress [...] any time in the past 12 m onths, were you homeless or living in a correction (including now)? No 08/13/2024 Housing Stability Vital Sign Answer Maury e Recorded In the last 12 months, was t here a time when you were not able to pay the mortgage or rent on time? No 11/23/2024 In the past 12 months, how m any times have you moved where you were living? 0 11/23/2024 At any time in the past 12 m onths, were you homeless or living in a correction (including now)? No 11/23/2024 Education Answer Date Recorded What is the highest level of school you have completed or the highest degree you have received? 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 Sexual Orientation Not on file Last Filed [...] [facility] - [place] [address] [place] [id number] Ajith Yoder MD [address] [place] [address] Health Maintenance Due Date Last Done Comments [...] 1 Tdap) 06/08/2029 06/08/2019, 11/12/2007 Colonoscopy 08/31/2032 08/31/2022, 08/31/2022 AAA Screening Ultrasound Completed 01/15/2018 Pneumococcal [...] Procedure Name Priority Date/Time Associated Diagnosis Comments PSA DIAGNOSTIC,TOTAL Today 11/25/2024 8:55 AM CDT Abnormal PSA HEPATITIS C ANTIBODY Routine 11/26/2023 8:54 AM CDT Encounter for hepatitis C screening test for low risk patient GI IMAGING - COLONOSCOPY Routine 08/31/2022 8:52 AM CDT COLOGUARD Routine 12/07/2019 12:35 PM CDT Screening for colon cancer US AAA SCREENING Routine 01/15/2018 9:04 AM CDT Screening for cardiovascular condition from Last 3 Months or Most Recently Relevant to Health Maintenance Results * (ABNORMAL) PSA DIAGNOSTIC,TOTAL (11/25/2024 8:55 AM CDT) PSA, TOTAL (PROSTATIC SPECIFIC ANTIGEN) 5.08(H) <4.00 ng/mL 11/25/2024 1:58 PM CDT [facility] Blood Venipuncture / Unknown 11/25/2024 8:55 AM CDT 11/25/2024 8:55 AM CDT Narrative [facility] - 11/25/2024 1:58 PM CDT PSA NOTE: The PSA value should be used in conjunction with information available from clinical evaluation and other diagnostic procedures. The MeddleNITY Total PSA assay is a Chemiluminescent Microparticle Immunoassay (CMIA) for the quantitative determination of total PSA (both free PSA and PSA complexed to [id number]) in human serum. Total PSA values obtained with different assay methods, including Medina PSA assays, cannot be used interchangeably. us Ajith Yoder MD CHEMISTRY ORDERABLES Lurdes harding Result [facility] [address] [place] [address] * HEPATITIS C ANTIBODY (11/26/2023 8:54 AM CDT) hepatitis C antibody 0.12 <1 S/CO 11/26/2023 11:00 PM CDT [facility] Comment: Signal/Cutoff ratio < 0.79 is Nondetected Signal/Cutoff ratio 0.80-0.99 is Grayzone Signal/Cutoff ratio > 0.99 is Detected Supplemental assays are recommended if signal/cutoff ratio is >/=1.00. Signal/cutoff ratio result >/= 5.00 is 97% predictive of positivity for recombinant immunoblot assay (RIBA) and will be reported to the [place] Department of Public Health as required. Blood Venipuncture / Unknown 11/26/2023 8:54 AM CDT 11/26/2023 8:54 AM CDT us Ajith Yoder MD CHEMISTRY ORDERABLES Lurdes l Result [facility] [address] [place] [address], * GI IMAGING - COLONOSCOPY (08/31/2022 8:52 AM CDT) Crystal Mojica MD IMG DIAGNOSTIC ORDERABLES Final Result * COLOGUARD (12/07/2019 12:35 PM CDT) Cologuard Negative Not Applicable [facility] Comment: A negative result indicates a [...] Saenz et al, N Engl J Med 2014;370(14):3475-8260) The normal value (reference range) for this assay is negative. COLOGUARD RE-SCREENING RECOMMENDATION: Periodic routine colorectal cancer screening is an important part of preventive healthcare for asymptomatic persons at average risk for colorectal cancer. Following a negative Cologuard result, the [place] Cancer Society and U.S. Multi-Society Task Force screening guidelines recommend a Cologuard re-screening interval of 3 years. References: [place] Cancer Society (ACS). Colorectal cancer prevention and early detection. [place], [place]: [place] Cancer Society; [updated 2015Aug 27]. https://www.cancer.org/cancer/xqgql-tfgzgo-anglvf/nygeyrfhi-vjdxvduyf-wrhplxz/ acs-recommendations.html. Accessed January 03, 2018; Ramos DK, Yoni CR, Donna AzevedoK, Colorectal Cancer Screening: Recommendations for Physicians and Patients from the U.S. Multi-Society Task Force on Colorectal Cancer Screening, Am J Gastroenterology 2017; 112:6043-2550. TEST TYPE: Composite algorithmic analysis of stool [...] interval of every 3 years by the [place] Cancer Society and U.S. Multi-Society Task Force. [...] can be accessed at the following location: www.[employer]/results. Additional description of the Cologuard test process, warnings and precautions can be found at www.cologuardtest.com. Rx only. Stool specimen (specimen) 12/07/2019 12:35 PM CDT 12/08/2019 3:42 PM CDT us Ajith Yoder MD BODY FLUIDS & STOOLS STEPHY SEGOVIA Final Result [facility] [address] [place] [address], [place] [phone] [facility] [address] [place] [address] * [place] AAA Screening (01/15/2018 9:04 AM [...] Electronically signed by Chapito Barragan M.D. [place]: [place] Report ID: [id number] Reading Location: [id number] Procedure Note Chapito Barragan [...] 12:30 PM - Electronically signed by Chapito aBrragan M.D. [place]: [place] Report ID: [id number] Reading [id number] IMPRESSION: No abdominal aortic aneurysm. us Ajith Yoder MD [facility] ORDERABLES Final R esult from Last 3 Months or Most Recently Relevant to Health Maintenance Insurance MEDICARE [facility] Care Teams Production Operator Relationship Specialty Start Date End Date Ajith Yoder MD [address] [place] [address] PCP - General Internal Medicine 05/21/22 Robert Rodriguez MD [address] [place] [address] [address] [place] [address] Consulting Physician Dermatology 02/06/19 Gregoria Goodrich APRN, ADMISSIONS ADVISOR [address] [place] [address] Nurse Practitioner Gastroenterology 08/16/22 Georges Luque MD [address] [address] Consulting Physician Colon and Rectal Surgery 12/19/23 Lion Mishra MD [address] [address] Consulting Physician Urology 11/25/24
--- OUTSIDE RECORDS SUMMARY | 2025-03-18 09:46 | XMS_ITS | Clinical Summary ---
Author Organization [facility] Address [address] 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 Gender Identity Not on file Sexual Orientation Not on file Plan of Treatment Health Maintenance Due Date Last Done Comments COLORECTAL SCREENING 11/09/1996 Colorectal Cancer Screening 11/09/1996 FIT-DNA Q 3 years 11/09/1996 FIT/FOBT Q 1 year 11/09/1996 Flex Sig/CT Colonography Q 5 years 11/09/1996 ZOSTER VACCINE (1 of 2) 11/09/2001 DTAP/TDAP/TD VACCINES (2 - T d or Tdap) 11/11/2017 11/12/2007 INFLUENZA VACCINE (#1) 2024 0, 02/06/2019, 07/02/2018, Additional history exists RSV VACCINE (60+ or ) (1 - 1-dose 75+ series) 11/09/2026 PNEUMOCOCCAL VACCINE 50+ YEARS Completed 2018 , 11/08/2017 Care Teams Threat Analyst Relationship Specialty Start Date End Date Ajith Yoder MD [address] [place] [address] PCP - General Internal Medicine 07/15/19
--- OUTSIDE RECORDS SUMMARY | 2025-03-18 09:46 | XMS_ITS | Clinical Summary ---
Author Organization [facility] Address [facility] [place] [address] Care Team Providers Care Public Safety Director Name Role Phone New Referring, Provider Primary Care Provider Un available Encounters Date Type Department Care Team Description 03/11/2025 1:15 PM PREVENTATIVE MAINTENANCE TECHNICIAN Laboratory Only [facility] [address] [place] [address] Igor Grissom MD 03/11/2025 Travel from Last 3 Months Immunizations Immunization Administration Dates Next Due MODERNA [...] Sex Assigned at Male 05/21/2024 1:50 PM PREVENTATIVE MAINTENANCE TECHNICIAN Legal Sex Male 10:15 AM PREVENTATIVE MAINTENANCE TECHNICIAN Gender Identity Not on file Sexual Orientation Not on file Plan of Treatment Health Maintenance Due Date Last Done Comments Colorectal Cancer Screening Colonoscopy (10 Years) 1950 Annual Medicare Wellness Visit 11/09/2016 COVID-19 Vaccine ( season) 2025 03/24/2023, 12/17/2022, 06/25/2022, Additional history exists Influenza Adult (#1) 2025 03/01/2024, 02/22/2020, 02/06/2019, Additional history exists RSV Immunization or 60+ [...] Procedure Name Priority Date/Time Associated Diagnosis Comments HEMOGLOBIN, GLYCOSYLATED Routine 03/11/2025 1:24 PM PREVENTATIVE MAINTENANCE TECHNICIAN from Last 3 Months Results * (ABNORMAL) HEMOGLOBIN, GLYCOSYLATED (03/11/2025 1:24 PM PREVENTATIVE MAINTENANCE TECHNICIAN) HGB A1C 6.5(H) <5.7 % 03/11/2025 1:56 PM PREVENTATIVE MAINTENANCE TECHNICIAN [facility] Comment: INCREASED RISK OF DIABETES <5.7% NON-DIABETES 5.7-6.4% INCREASED RISK FOR FUTURE DIABETES > OR = 6.5 CONSISTENT WITH DIABETES STANDARDS OF MEDICAL CARE IN DIABETES-2010 DIABETES CARE, 33(SUPP 1): S1-S61,2010 ESTIMATED AVG GLUCOSE 140 mg/dL 03/11/2025 1:56 PM PREVENTATIVE MAINTENANCE TECHNICIAN [facility] 03/11/2025 1:24 PM PREVENTATIVE MAINTENANCE TECHNICIAN Igor Grissom MD LABORATORY Final Result [facility] [address] [place] [address], [place] [phone] from Last 3 Months Insurance MEDICARE Care Teams Public Safety Director Relationship Specialty Start Date End Date New Referring, Provider PCP - General UNKNOWN PHYSICIAN SPECIALTY 04/24/19
--- OUTSIDE RECORDS SUMMARY | 2025-03-18 09:46 | XMS_ITS | Encounter Summary ---
Author Organization [facility] Address [address] [place] [address] Phone Care Team Providers Care Zipper Slide Attacher Name Role Phone Ajith Yoder MD Primary Care Provider [phone] Robert Rodriguez MD Unavailable [phone] Janene Rodriguez APRN, TECHNICAL SALES ADVISOR Primary Care Provider Ajith Yoder MD Primary Care Provider [phone] Gregoria Goodrich APRN, TECHNICAL SALES ADVISOR Unavailable Georges Luque MD Unavailable Lion Mishra MD Unavailable Reason for Visit * Reason Comments Medication Refill Encounter Details Date Type Department Care Team (Late st Contact Info) Description 09/09/2020 Refill [facility] - Primary Care - [place] [address] [place] [address] Ajith Yoder MD [address] [place] [address] Medication Refill Social History Tobacco [...] CDT Gender Identity Male 03/27/2023 10:20 PM RESOURCE COORDINATOR Sexual Orientation Not on file documented as [...] Care - [place] [address] [place] [address] Ajith Yoder MD [address] [place] [address] documented as of this encounter Visit Diagnoses [...] documented as of this encounter Care Teams Zipper Slide Attacher Relationship Specialty Start Date End Date Ajith Yoder MD [address] [place] [address] PCP - General Internal Medicine 08/16/15 11/14/21 Janene Rodriguez, GREASE REFINING SUPERVISOR, TECHNICAL SALES ADVISOR [address] [place] [address] PCP - General Advanced Practice Nurse 11/15/21 Ajith Yoder MD [address] [place] [address] PCP - General Internal Medicine 05/21/22 Robert Rodriguez MD [address] [facility] [address] [place] [address] Consulting Physician Dermatology 02/06/19 Gregoria Goodrich APRN, TECHNICAL SALES ADVISOR [address] [place] [address] Nurse Practitioner Gastroenterology 08/16/22 Georges Luque MD [address] [address] Consulting Physician Colon and Rectal Surgery 12/19/23 Lion Mishra MD [address] [address] Consulting Physician Urology 11/25/24 documented as of this encounter
== END 2025-03-18 09:18 | disposition home or self-care (01) ==
LOC: ANHCARD 09:18
PROVIDERS: PCP Family Medicine; Visit Provider Family Medicine
DX: R01.1 Cardiac murmur, unspecified (principal); R94.31 Abnormal electrocardiogram [ECG] [EKG]
CPT/HCPCS: 93306